=== PATIENT | female | born 2000 | race Caucasian/White ===

== ENCOUNTER 2023-09-23 12:08 | Emergency (ER) | payer OTHER, SELFPAY ==
--- NOTE | ~2023-09-23 | US_ITS ---
EXAMINATION:US venous doppler LE LT INDICATION:Lower extremity swelling TECHNIQUE: Multiple grayscale, color flow and Doppler images of the left lower extremity deep venous systems were obtained and reviewed. COMPARISON:No prior studies for comparison. FINDINGS: The common femoral, superficial femoral and popliteal veins demonstrate normal respiratory variation, augmentation and compressibility. Color flow is also seen within the posterior tibial, pe roneal, greater saphenous and profunda veins. IMPRESSION: 1: No lower extremity deep venous thrombosis. Reviewed, dictated and finalized at location [facility].
[2023-09-23 12:22] VITALS: BP 119/71; PULSE 101; RESP 16; TEMP 36.6; O2SAT 99
--- NOTE | 2023-09-23 12:52 | ED.EXTPRO ---
HPI - Extremity Problem General Chief complaint: Extremity Problem,Nontraumatic Stated complaint: lump on L leg, states high risk for blood clots Time Seen by Provider: 09/23/23 12:52 History of Present Illness HPI Narrative: Patient is a 23 year old female currently undergoing evaluation for IBS here with left leg swelling. Patient notes that symptoms began about 2 weeks ago. She states that she went to an outpatient urgent care type clinic when her symptoms 1st began 2 separate times. They thought it was likely a hematoma or something benign. She has had continued pain and swelling to this area. She notes she has an area of 3 cm of swelling to the lateral aspect of her left calf. Patient notes it initially had some overlying bruising which has significantly improved. She denies known trauma to the area. She has been using hot compresses, has not been taking Tylenol or ibuprofen for the pain. She had been told by her provider that should she have persistent symptoms she should present to the emergency department to be evaluated for possible blood clot or other cause of the symptoms. She denies any fever chills. Denies any warmth to this area. She notes prior family history of DVT however this was provoked by a bee and chemotherapy with a cancer diagnosis. She has not had any recent travel, is not on any OCPs. Related Data Allergies Allergy/AdvReac Type Severity Reaction Status Date / Time No Known Allergies Allergy Verified 09/23/23 12:21 Review of Systems Review of Systems: All systems reviewed & are unremarkable except as noted in HPI and below Exam Narrative: GENERAL: Well-appearing, well-nourished, and in no acute distress. CHEST: Clear to auscultation. No respiratory distress. HEART: Regular rate and rhythm. Normal peripheral pulses. ABDOMEN: Soft, nontender, nondistended. EXTREMITIES: Normal range of motion. 3 x 3 area of induration and edema present over the distal 1/3 of her calf. It is on the lateral aspect, no overlying erythema or bruising present. No calf tenderness appreciated. SKIN: Warm, dry, no rash. NEURO: No focal deficits. Alert and oriented x3. Course Course Emergency Course: Chart review performed. Patient here with a bump to her left lower leg x2-3 weeks. Triage vitals show tachycardia, otherwise normal. No prior visits in our system. Patient seen evaluated, nontoxic appearing. She has an area of isolated swelling and tenderness over the lateral aspect of her left calf. Clinically does not appear to be consistent with cellulitis. Suspect either a resolving hematoma from a unnoticed traumatic injury versus less likely DVT. Will give a dose of Tylenol here in the department and perform a LE Doppler. Patient agreeable to workup and plan. DVT study negative. Advised ice packs, Tylenol, follow up with her primary care doctor. Suspect she likely has a resolving hematoma in this area. No evidence of cellulitis on exam. No indication for antibiotics at this stage. The results of pertinent diagnostic studies and exam findings were discussed. The patient?s provisional diagnosis and plan of care were discussed with the patient and present family. The patient and/or present family expressed understanding of the diagnosis and plan. The nurse was instructed to provide written instructions and appropriate follow-up information. The patient understands their need and responsibility to obtain additional follow-up as instructed. The risks of medications administered and prescribed were discussed with the patient and family present. Vital Signs Vital signs: Vital Signs Temperature 97.8 F 09/23/23 12:22 Pulse Rate 101 H 09/23/23 12:22 Respiratory Rate 16 09/23/23 12:22 Blood Pressure 119/71 09/23/23 12:22 Pulse Oximetry 99 09/23/23 12:22 Oxygen Delivery Room Air 09/23/23 12:22 Temperature 98.2 F 09/23/23 14:52 Pulse Rate 80 09/23/23 14:52 Respiratory Rate 16 09/23/23 14:52
[2023-09-23] MEDS: ACETAMINOPHEN 325 MG TABLET 650 MG PO (14:26)
[2023-09-23 14:52] VITALS: BP 119/71; PULSE 80; RESP 16; TEMP 36.8; O2SAT 100
== END 2023-09-23 14:53 | disposition home or self-care (01) ==
PROVIDERS: Emergency Provider Student in an Organized Health Care Education/Training Program
DX: M79.662 Pain in left lower leg (principal)
CPT/HCPCS: 81025; 93971; 99284; A9270

== ENCOUNTER 2023-10-28 08:17 | Emergency (ER) | payer OTHER, SELFPAY ==
--- NOTE | ~2023-10-28 | CT_ITS ---
CT of the Abdomen and Pelvis: Indication: Abdominal pain Technique: 2.5 mm axial scans were obtained through the abdomen and pelvis following intravenous adm inistration of 100 cc of Omnipaque 350. Dose reduction technique was used on this scan by utilizing a utomated exposure control and iterative reconstruction technique. The dose-length product (DLP) was 2 70.84 mGy-cm. Findings: Scans through the lung bases are unremarkable. The liver, spleen, pancreas, gallbladder, adrenals and kidneys are within normal limits. No evidence of aortic aneurysm. No lymphadenopathy. There is probable diffuse large bowel wall thickening. No bowel obstruction. No abscess or free air e vident. Images through the pelvis were performed. Urinary bladder unremarkable. No adnexal mass seen. Small a mount of pelvic free fluid present. Impression: Pancolitis, most likely infectious/inflammatory basis. Correlate clinically. Small amount of pelvic ascites, likely reactive. Reviewed, dictated and finalized at [facility]. Impression: Pancolitis, most likely infectious/inflammatory basis. Correlate clinically. Small amount of pelvic ascites, likely reactive.
[2023-10-28 08:21] VITALS: BP 134/93; PULSE 119; RESP 18; TEMP 37.2; O2SAT 98
[2023-10-28 08:43] LABS: Basophils Absolute Auto 0.1 K/mm3 (0.0-0.1); Basophils Percent Auto 0.4 % (0.2-1.2); Eosinophils Absolute Auto 0.2 K/mm3 (0-0.3); Eosinophils Percent Auto 1.2 % (0-4.4); Hematocrit 39.6 % (37.0-47.0); Hemoglobin 12.7 g/dL (12.0-15.0); Immature Granulocyte Absolute 0.07 K/mm3 (0.00-0.031); Immature Granulocyte Percent A 0.5 % (0-0.5); Lymphocytes Absolute Auto 1.28 K/mm3 (0.9-3.2); Lymphocytes Percent Auto 9.7 % (18.3-44.2); Mean Corpuscular HGB Conc 32.1 g/dl (32-36); Mean Corpuscular Hemoglobin 28.3 pg (26-34); Mean Corpuscular Volume 88.2 fl (80-100); Mean Platelet Volume 8.6 fl (7.4-10.4); Monocytes Absolute Auto 1.3 K/mm3 (0.1-0.6); Monocytes Percent Auto 9.9 % (2.6-8.5); Neutrophils Absolute Auto 10.3 K/mm3 (1.3-6.7); Neutrophils Percent Auto 78.3 % (45.5-73.1); Platelet Count Result 553 k/mm3 (150-375); Red Blood Count 4.49 M/mm3 (4.2-5.4); Red Cell Distribution Width 12.5 % (11.5-14.5); White Blood Count 13.1 K/mm3 (4.5-10.0)
[2023-10-28 08:57] LABS: Alanine Aminotransferase 11 U/L (6-35); Alkaline Phosphatase 121 U/L (38-126); Anion Gap 10 mmol/L (4-12); Aspartate Amino Transferase 17 U/L (14-36); Bilirubin,Total 0.3 mg/dL (0.2-1.3); Blood Urea Nitrogen 6 mg/dL (7-17); Calcium 8.8 mg/dL (8.4-10.2); Carbon Dioxide 27 mmol/L (22-30); Chloride 99 mmol/L (98-107); Estimated CRCL calculation 89 ml/min; Estimated Glomerular Filt Rate > 60; Glucose 99 mg/dL (65-110); Lipase 80 U/L (23-300); Potassium 3.8 mmol/L (3.4-5.0); Sodium 136 mmol/L (137-145)
--- NOTE | 2023-10-28 09:08 | ED.ABDPAIN ---
HPI - Abdominal Pain General Chief Complaint: Abdominal Pain Stated Complaint: low grade fever and severe abd pain Time Seen by Provider: 10/28/23 08:58 History of Present Illness HPI narrative: No medical problems presents to the emergency room for evaluation of upper abdominal pain that has been present intermittently for over 1 year. States the pain is intensified over the last 2 weeks. Is accompanied with bloody diarrhea and subjective low-grade fevers. Patient states father and grandmother with a history of Crohn's disease. Patient is under the care of a GI physician, as abdominal CT scan and a colonoscopy scheduled for later this month. Patient also complaining of nausea and decreased p.o. intake. Denies back pain. Denies dysuria. Related Data Allergies Allergy/AdvReac Type Severity Reaction Status Date / Time No Known Allergies Allergy Verified 09/23/23 12:21 Review of Systems Review of Systems: ROS unremarkable except for noted in HPI Exam Narrative: GENERAL: Well-appearing, well-nourished, no physical limitations, and in no acute distress. HEAD: Normocephalic, atraumatic. EYES: Conjunctivae normal, PERRLA and EOMI. CHEST: Clear to auscultation. No respiratory distress. No wheezes rales or rhonchi. HEART: Regular rate and rhythm. No murmur heard. Normal peripheral pulses. ABDOMEN: Soft, upper abdominal tenderness, nondistended, normal active bowel sounds. BACK: No CVA tenderness EXTREMITIES: Normal range of motion. No edema. No clubbing or cyanosis SKIN: Warm, dry, no rash. No noted wounds NEURO: No focal deficits. Alert and oriented x3. MAEW. CN's II-XI intact bilaterally, normal gait PSYCH: Cooperative. Normal mood and affect. Course Vital Signs Vital signs: Vital Signs Temperature 37.2 C 10/28/23 08:21 Pulse Rate 119 H 10/28/23 08:21 Respiratory Rate 18 10/28/23 08:21 Blood Pressure 134/93 H 10/28/23 08:21 Pulse Oximetry 98 10/28/23 08:21 Oxygen Delivery Room Air 10/28/23 08:21 Temperature 37.2 C 10/28/23 08:21 Pulse Rate 100 10/28/23 11:12 Respiratory Rate 18 10/28/23 11:12 Blood Pressure 104/64 10/28/23 11:12 Pulse Oximetry 99 10/28/23 11:12 Oxygen Delivery Room Air 10/28/23 08:21 MDM - Abdominal Pain MDM Narrative Medical decision making narrative: 23-year-old female history of intermittent abdominal pain this for over year associated with of loose stools and occasional bloody stools presented with worsening abdominal pain. CT scan showed evidence of black colitis. Patient has no evidence of leukocytosis. ESR and CRP were elevated, given the patient's family history of ulcerative colitis, suspect that the patient has UC or Crohn's. patient has a scheduled colonoscopy on 11/09. Will encourage patient to keep that appointment. Lab Data 10/28/23 08:32 10/28/23 08:32 Labs: Lab Results 10/28/23 10/28/23 10/28/23 Range/Units 08:29 08:32 09:00 WBC 13.1 H (4.5-10.0) K/mm3 RBC 4.49 (4.2-5.4) M/mm3 Hgb 12.7 (12.0-15.0) g/dL Hct 39.6 (37.0-47.0) % MCV 88.2 (80-100) fl MCH 28.3 (26-34) pg MCHC 32.1 (32-36) g/dl RDW 12.5 (11.5-14.5) % Plt Count 553 H (150-375) k/mm3 MPV 8.6 (7.4-10.4) fl Immature Gran % (Auto) 0.5 (0-0.5) % Neut % (Auto) 78.3 H (45.5-73.1) % Lymph % (Auto) 9.7 L (18.3-44.2) % [place] % (Auto) 9.9 H (2.6-8.5) % Eos % (Auto) 1.2 (0-4.4) % Baso % (Auto) 0.4 (0.2-1.2) % Lymph # (Auto) 1.28 (0.9-3.2) K/mm3 [place] # (Auto) 1.3 H (0.1-0.6) K/mm3 Eos # (Auto) 0.2 (0-0.3) K/mm3 Baso # (Auto) 0.1 (0.0-0.1) K/mm3 Abs Immat Gran (auto) 0.07 H (0.00-0.031) K/mm3 Absolute Neuts (auto) 10.3 H (1.3-6.7) K/mm3 Absolute Nucleated RBC 0.000 (0.0-0.012) K/mm3 Nucleated RBC % 0.0 (0.0-0.2) % ESR 35 H (0-20) mm/hr Sodium 136 L (137-145) mmol/L Potassium 3.8 (3.4-5.0) mmol/L Ch
[2023-10-28] MEDS: SODIUM CHLORIDE 0.9% IV 1,000 ML 999 ML IV CONT (09:14)
[2023-10-28] MEDS: ONDANSETRON INJ 4 MG/2 ML VIAL IV PUSH (09:14)
[2023-10-28 09:16] LABS: Pregnancy On Board Control Positive; Urine Pregnancy Test Negative
[2023-10-28 09:30] LABS: Appearance Urine Cloudy (Clear); Bacteria Urine Rare /hpf; Bilirubin Urine Negative (Negative); Blood Urine Negative (Negative); Calcium Oxalate Crystals Urine Present /hpf; Color Urine Yellow (Yellow); Glucose Urine UA Negative (Negative); Ketones Urine Trace mg/dL (Negative); Leukocyte Esterase Ur Trace LEU/UL (Negative); Need Manual Microscopic Reviewed; Nitrate Urine Negative (Negative); Non Pathogenic Casts 0-2; Protein Urine Negative (Negative); Specific Grav Ur 1.025 (1.001-1.035); Squamous Epithelial Cell Urine Moderate /hpf (Few); Urobilinogen Urine 0.2 mg/dL (<2.0)
[2023-10-28 09:34] LABS: Add Urine Microscopic? YES
[2023-10-28 11:12] VITALS: BP 104/64; PULSE 100; RESP 18; O2SAT 99
[2023-10-28 11:12] LABS: Erythrocyte Sedimentation Rate 35 mm/hr (0-20)
[2023-10-28 11:58] VITALS: PULSE 72; RESP 16; O2SAT 98
== END 2023-10-28 11:59 | disposition home or self-care (01) ==
PROVIDERS: Student in an Organized Health Care Education/Training Program; Emergency Provider Nurse Practitioner Family
DX: K52.9 Noninfective gastroenteritis and colitis, unspecified (principal); K50.90 Crohn's disease, unspecified, without complications
CPT/HCPCS: 36415; 74177; 80053; 81001; 81025; 83690; 85025; 85652; 86140; 87086; 87088; 96361; 96374; 99284; J2405; J7030; Q9967